=== PATIENT | female | born 1975 | race Caucasian/White ===

== ENCOUNTER 2017-02-13 06:05 | Day surgery (SDC) | payer OTHER ==
[~2017-02-13] VITALS: Ht 160 cm; Wt 91.6 kg
[~2017-02-13 06:05] MED LIST: CLARITIN 1010 MG/TAB PO; NORCO 325 MG-51 TAB PO; PRIL40 PO; SUDAFED30 MG PO; [UNRECOGNIZED DRUG - OTHER]
[2017-02-13] MEDS ORDERED: ATIVAN 1MG T1 MG/TAB PO (06:30)
[2017-02-13] MEDS ORDERED: LEXAPRO20 MG PO (06:30)
[2017-02-13] MEDS ORDERED: ZYLOPRIM 300MG300 MG PO (06:31)
[2017-02-13] MEDS ORDERED: VITAMIN D32000 IU PO (06:31)
[2017-02-13] MEDS ORDERED: COMPLETE SENIOR1 TA1 PO (06:31)
[2017-02-13] MEDS ORDERED: NEXIUM 40MG40 MG PO (06:32)
[2017-02-13 06:55] VITALS: BP 103/69; PULSE 85; TEMP 98.8
[2017-02-13 07:30] VITALS: BP 116/74; PULSE 80; TEMP 97.8
[2017-02-13 07:45] VITALS: BP 131/86; PULSE 88
== END 2017-02-13 08:14 | disposition home or self-care (01) ==
LOC: SDCO 06:05
DX: K21.9 Gastro-esophageal reflux disease without esophagitis (principal); K30 Functional dyspepsia; R07.9 Chest pain, unspecified; F41.9 Anxiety disorder, unspecified; F32.9 Major depressive disorder, single episode, unspecified; Z87.891 Personal history of nicotine dependence
CPT/HCPCS: J2704; J7030

== ENCOUNTER → 2017-06-10 | Outpatient (CLI) | payer OTHER ==
[~2017-06-10] MED LIST changes: +ATIVAN 1MG T1 MG/TAB PO; +COMPLETE SENIOR1 TA1 PO; +LEXAPRO20 MG PO; +NEXIUM 40MG40 MG PO; +VITAMIN D32000 IU PO; +ZYLOPRIM 300MG300 MG PO
== END ==
LOC: MHCPAIN 11:49
DX: G89.29 Other chronic pain (principal); M54.12 Radiculopathy, cervical region; M47.812 Spondylosis without myelopathy or radiculopathy, cervical region; R51 Headache; M54.81 Occipital neuralgia
CPT/HCPCS: G0463